=== PATIENT | female | born 1980 | race Caucasian/White ===

== ENCOUNTER 2019-11-02 08:55 | Day surgery (SDC) | payer OTHER ==
[~2019-11-02] VITALS: Ht 157.5 cm; Wt 99.8 kg
[~2019-11-02 08:55] MED LIST: FLUOXETINE HCL10 MG PO; GLUCOPHAGE500 MG PO; IBUPROFEN400 MG PO; LOMOTIL TABLET1 EACH PO; ZOFRAN ODT4 MG PO
--- NOTE | 2019-11-03 11:43 | OR ---
[facility] [address] [place] [id number] Signed DATE OF OPERATION: 11/02/2019 SURGEON: Kaveh Tena MD Patient of Dr. Tena. PREOPERATIVE DIAGNOSIS: Abnormal uterine bleeding. POSTOPERATIVE DIAGNOSES: 1. Abnormal uterine bleeding. 2. Endometrial polyp. PROCEDURE: Hysteroscopy with polypectomy and D and C. ANESTHESIA: MAC. ESTIMATED BLOOD LOSS: 20 mL. SPECIMENS: Endometrial sample and endometrial polyp. DRAINS: None. PACKING: None. FINDINGS: Normal size and shape of cervix, and normal shape and size of endometrial cavity with large amount of normal-appearing fluffy endometrial tissue. There was a long thin endometrial polyp starting at the upper body and extending to the lower uterine segment and endocervix. There was also small dark necrotic-looking nodule approximately 5 mm diameter right in the midline fundus, possibly degenerating fibroid or polyp or even blood clot. COMPLICATIONS: Electronically Signed By: KAVEH TENA MD 11/03/19 1143 PATIENT NAME: SHARON BRASWELL OPERATIVE REPORT DATE OF : [birth year] REPORT #: [id number] PHYSICIAN: KAVEH TENA MD PCP: BENJAMIN ALEGRIA REPORT IS CONFIDENTIAL AND NOT TO BE RELEASED WITHOUT AUTHORIZATION [address] [address] Signed None. DESCRIPTION OF PROCEDURE: The patient was brought to the operating room, placed in supine position, and prepped and draped in usual sterile fashion. The patient received MAC and then a small speculum placed in the vagina. The anterior lip of the cervix was grasped with a long Allis clamp. The cervix was dilated to #6 Latvian dilator and then the hysteroscope placed in the outer cervix and entered the uterine cavity under direct visualization using sterile saline as the distending medium through the cervix and into the uterine cavity. The above findings were noted. The MyoSure Lite was then placed through the hysteroscope and the long thin polyp removed along its entire length. There was a large amount of fluffy tissue making visualization more difficult, so this was removed in the lower portion of the uterus in 360 degree fashion, opening up, and better visualization of the upper fundus where the small nodule was then easily identified. This was also removed using the MyoSure. At this point, no other masses or lesions were seen. The cavity appeared open, so the procedure was terminated. The pressure in the cavity was 80 mmHg. Fluid deficit was inaccurate because almost half the fluid ended up going around the collection bag and ending up on the floor, but estimate was around 300-400 mL. All instruments were removed from the uterus and cervix. The cervix was observed and noted to have good hemostasis. The patient tolerated the procedure well, went to recovery room in good condition. The sponge and instrument count correct at the end of the procedure. The uterine specimen was sent to Pathology for identification. MD SONIA Pickens/ISRRAEL /[id number] Copies: ~ Electronically Signed By: KAVEH TENA MD 11/03/19 1143 PATIENT NAME: SHARON BRASWELL OPERATIVE REPORT DATE OF : [birth year] REPORT #: [id number] PHYSICIAN: KAVEH TENA MD PCP: BENJAMIN ALEGRIA REPORT IS CONFIDENTIAL AND NOT TO BE RELEASED WITHOUT AUTHORIZATION
--- NOTE | 2019-11-09 16:07 | PATH ---
[facility] [address], [place] [address] Signed SPECIMEN(S): A ENDOMETRIAL CURETTINGS AND POLYP SPECIMEN SOURCE: A. ENDOMETRIAL CURETTINGS AND POLYP CLINICAL HISTORY: Abnormal uterine bleeding. 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 - Fragments of endometrial polyp, see Microscopic description. COMMENT: As part of [facility]' Quality Improvement Program, this case was reviewed by another member of our pathology staff. The results were discussed with Dr. Tena on 11/09/2019. NAL:emb:C1NR MICROSCOPIC EXAMINATION: Fragments consistent with an endometrial polyp are present and the adenocarcinoma is favored to be arising within the polyp. 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 Immunohistochemical stains (with appropriately staining controls) are performed. The endometrioid adenocarcinoma shows nuclear positivity for ER and a wild-type (non-mutated) pattern for p53, confirming the diagnosis. Histologic sections of all submitted blocks are examined by light microscopy. These findings, together with the gross examination, support the pathologic diagnosis. GROSS DESCRIPTION: The specimen is received in a formalin filled specimen container labeled "EG". An aggregate of pale pink-cardenas soft tissue fragments is 3.0 x 2.0 x 1.0 cm and entirely submitted in cassettes A1 and A2. GW (under the direct supervision of a pathologist) The Gross Description was prepared using a voice recognition system. The report was reviewed for accuracy; however, sound-alike word errors, addition and/or deletions may occur. If there is any question about this report, please contact Client Services. PATIENT NAME: SHARON BRASWELL PATHOLOGY DATE OF : 82 REPORT #: [id number] PHYSICIAN: [facility] PCP: BENJAMIN ALEGRIA REPORT IS CONFIDENTIAL AND NOT TO BE RELEASED WITHOUT AUTHORIZATION [facility] [address] [address] Signed ADDITIONAL NOTES: Immunohistochemical and/or in situ hybridization studies were performed on this case with the appropriate positive controls that react as expected. This test was developed and its performance characteristics determined by [facility]. It has not been cleared or approved by the U.S. Food and Drug Administration. The FDA has determined that such clearance or approval is not necessary. This test is used for clinical purposes. It should not be regarded as investigational or for research. [facility] is certified under the Clinical Laboratory Improvement Amendments of 1988 (CLIA) as qualified to perform high complexity clinical laboratory testing. PERFORMING LABORATORY: The technical component was performed by [facility], [address] [place] [id number] (Care Analyst: Luh Hector MD; CLIA# [id number]). [facility] [address] [address] (Care Analyst: Walter Mcgarry MD; CLIA# [id number]). Diagnostician: Cecelia Salgado MD Pathologist Electronically Signed 11/09/2019 Copies: ~ PATIENT NAME: SHARON BRASWELL PATHOLOGY DATE OF : [birth year] REPORT #: [id number] PHYSICIAN: [facility] PCP: BENJAMIN ALEGRIA REPORT IS CONFIDENTIAL AND NOT TO BE RELEASED WITHOUT AUTHORIZATION
== END 2019-11-02 17:25 | disposition home or self-care (01) ==
LOC: OPS 08:55 → DS 08:55 → OPS 10:15 → DS 10:15 → OPS 17:25
PROVIDERS: General Practice
PROC: 0UB98ZZ Excision of Uterus, Via Natural or Artificial Opening Endoscopic (ICD-10-PCS; principal; 2019-11-02 10:15)
DX: C54.1 Malignant neoplasm of endometrium (principal); N84.0 Polyp of corpus uteri; F32.9 Major depressive disorder, single episode, unspecified; E03.9 Hypothyroidism, unspecified; J45.20 Mild intermittent asthma, uncomplicated; G47.30 Sleep apnea, unspecified; E66.9 Obesity, unspecified; Z79.899 Other long term (current) drug therapy; Z79.84 Long term (current) use of oral hypoglycemic drugs; Z99.89 Dependence on other enabling machines and devices; Z68.41 Body mass index [BMI] 40.0-44.9, adult
CPT/HCPCS: 00952; J0330; J0461; J1100; J1885; J2250; J2405; J2704; J2765; J3010; J7121

== ENCOUNTER 2021-06-02 06:50 | Day surgery (SDC) | payer OTHER ==
[~2021-06-02] VITALS: Ht 157.5 cm; Wt 98.6 kg
--- NOTE | 2021-06-02 10:57 | NUR ---
06/02/21 1057 Sheets,Yajaira 1052 PT ARRIVED TO PACU ON 10L VIA MASK, RESP EVEN AND UNLABORED WITH ORAL AIRWAY IN PLACE. VSS.
--- NOTE | 2021-06-02 11:59 | NUR ---
PT IS BACK TO FROM PACU. SHE IS REPORTING FEELING HOT, COLD AIR BLOWING FORM FLAQUITA GAVIOTAGGER. CALL LIGHT WITHIN REACH. SHE IS REQUESTING A SNACK, APPLE SAUCE AND CRACKERS. WATER ON BEDSIDE TABLE. NO ADDITIONAL NEEDS AT THIS TIME. DISCHARGE CRITERIA IS DISCUSSED WITH PATIENT.
[2021-06-02] MEDS ORDERED: HYDROCODON-ACE1 EA11 PO (12:13)
[2021-06-02] MEDS ORDERED: CIPRO500 MG PO (12:13)
[2021-06-02] MEDS ORDERED: PYRIDIUM200 MG PO (12:13)
--- NOTE | 2021-06-02 12:46 | NUR ---
KRISTIAN 1235: PT IS ASSISTED UP OOB TO THE BATHROOM. UPON ENTERING THE BATHROOM SHE REPORTS THAT SHE FEELS LIKE SHE IS GOING TO THROW UP, SHE IS GIVEN AN EMESIS BAG AND SHE THROWS UP APPROX. 150ML. SHE IS ALSO ABLE TO VOID QS. SHE IS HELPED BACK TO HER ROOM AND INTO BED.
--- NOTE | 2021-06-02 13:32 | NUR ---
vitals taken, no other needs at this time. call light with in reach
--- NOTE | 2021-06-02 13:37 | NUR ---
PT HAS NO C/O'S AT THIS TIME. SHE IS RESTING. CALL LIGHT WITHIN REACH.
--- NOTE | 2021-06-02 14:04 | NUR ---
registry nurse assisted pt. to use the bathroom. pt. was able to urinated after sitting for a few minutes, pt stated she felt a little light headed, she asked for and was given a cold wash cloth for her neck and forehead. pt. then walked back to her room and layed back in her bed. no other needs at this time.
--- NOTE | 2021-06-02 14:22 | NUR ---
vitals taken. pt is asking when she will get to go home, pt would like some crackers. no other needs at this time
--- NOTE | 2021-06-02 14:26 | NUR ---
pt. is getting dressed to be discharged
--- NOTE | 2021-06-02 14:39 | NUR ---
PT IS GIVEN VERBAL DC INSTRUCTIONS WITH MOM IN THE ROOM. PT VERBALIZES UNDERSTANDING. NO QUESTIONS THIS TIME. SHE IS TAKEN TO VEHICLE VIA WC BY [employer].
--- NOTE | 2021-06-06 15:09 | OR ---
[facility] [address] [place], [place] [address] Signed DATE OF OPERATION: 06/02/2021 SURGEON: Andrew Pickett MD PREOPERATIVE DIAGNOSES: 1. A 13 mm left renal calculus, present within the left renal pelvis. 2. Bilateral complex renal cysts. POSTOPERATIVE DIAGNOSES: 1. A 13 mm left renal calculus, present within the left renal pelvis. 2. Bilateral complex renal cysts. NAMES OF PROCEDURES: 1. Diagnostic cystoscopy with left retrograde pyelogram. 2. Left flexible nephroureteroscopy with laser lithotripsy and basket extraction of stone fragments. 3. Insertion of a 6 x 24 cm double-J ureteral stent into the left ureter. ANESTHESIA: General. ESTIMATED BLOOD LOSS: Minimal. COMPLICATIONS: None. SPECIMENS: Fragments of left renal calculus, sent to the lab for stone analysis. DRAINS: A 6 x 24 cm double-J ureteral stent inserted into the left ureter. INDICATION FOR PROCEDURE: Ms. Orr is a very pleasant 41-year-old female with no previous history of nephrolithiasis, who recently presented to me for evaluation of bilateral renal cysts. She had presented to a local emergency department with flank pain and underwent a CT scan, which revealed complex cysts with layers of calcium within the cyst on both sides. Also instantly noted at that time was an 11 mm left renal calculus, poised to descend into the ureter. Of note, the patient was not notified of these findings at the time of Electronically Signed By: ANDREW PICKETT MD 06/06/21 1509 PATIENT NAME: SHARON ORR OPERATIVE REPORT DATE OF : 82 REPORT #: [id number] PHYSICIAN: ANDREW PICKETT MD PCP: NO PRIMARY CARE PHYSICIAN REPORT IS CONFIDENTIAL AND NOT TO BE RELEASED WITHOUT AUTHORIZATION [facility] [address] [place], [place] [address] scan. When she came to see me, she was mostly asymptomatic and denied ever experiencing any flank pain and also denied any history of kidney stones. I recommended a KUB to assess any potential growth in the stone and the KUB did confirm the presence of a 13 mm left renal pelvis calculus. After discussion of the risks and benefits of the procedure, the patient elected to undergo ureteroscopic extraction of her large asymptomatic left renal calculus. OPERATIVE FINDINGS: 1. On cystoscopy, there was no evidence of any suspicious masses, lesions, or stones. Bilateral ureteral orifices are in their normal anatomic location and effluxing clear urine. 2. Left retrograde pyelogram was performed which revealed a normal caliber ureter with no evidence of any filling defects throughout the entire length of the ureter. The left kidney appears normal with no evidence of any calyceal blunting or filling defects. There is a large stone within the left renal pelvis that is consistent with the known 13 mm stone. 3. The stone was fragmented using a 270 micron fiber. The stone was fragmented within the left renal pelvis and fragmented quite easily. 100% of stone burden was successfully extracted from the left renal pelvis. 4. At the end of the procedure, a 6 x 24 cm double-J ureteral stent was inserted into the left kidney and ureter under direct visualization without difficulty. DESCRIPTION OF PROCEDURE: After informed consent was obtained, the patient taken back to the operating room. She was transferred [facility] to the operating room table, where general anesthesia was induced. She was placed in the dorsal lithotomy position and her genitalia were prepped and draped in a standard sterile fashion. Using a 30-degree lens on a 22.5-Macedonian introducer, rigid cystoscope was inserted through the urethra and into her bladder under direct visualization. Panendoscopic views of the bladder were then obtained. Please see above findings. Attention was turned to the left ureteral orifice. A cone-tipped catheter was then used to perform a left retrograde pyelogram. Please see above findings. I then inserted a 0.035 Sensor wire through the left ureteral orifice and into the left ureter. Placement of the wire was confirmed on fluoroscopy. Over the wire, I passed a 09/27 ureteral access sheath into the left ureter. The sheath passed easily under fluoroscopic guidance. The sheath made it up to the left ureteropelvic junction without difficulty. I repeated a left retrograde pyelogram to confirm placement of the sheath. I removed the inner cannula and then advanced the ureteroscope through the sheath and into the left renal pelvis. I immediately visualized the stone in the mid pole of the left kidney. The stone was fragmented using a 270 micron fiber and a holmium laser at 10 and 1 settings. The stone fragmented easily without difficulty. A Zero tip basket was then used to extract the stone fragments, which was performed without any difficulty. 100% of the stone was Electronically Signed By: ANDREW PICKETT MD 06/06/21 1509 PATIENT NAME: SHARON ORR OPERATIVE REPORT DATE OF : 82 REPORT #: [id number] PHYSICIAN: ANDREW PICKETT MD PCP: NO PRIMARY CARE PHYSICIAN REPORT IS CONFIDENTIAL AND NOT TO BE RELEASED WITHOUT AUTHORIZATION [address] [address] Signed successfully extracted today. Once the stone was completely extracted, I removed the ureteroscope and took a quick look into the proximal left ureter and did not appreciate any other additional calculi. Through the sheath, I passed a 0.035 Sensor wire into the left renal pelvis and confirmed placement of the wire via fluoroscopy. The sheath was then removed fully intact, leaving the wire in place. Over the wire, I passed a 6 x 24 cm double-J ureteral stent into the left collecting system under direct visualization. The stent passed easily and a proximal coil was noted within the left renal pelvis. The patient's bladder was then drained and the stone fragments were placed in a specimen cup to be sent to the lab for stone analysis. The cystoscope was then removed. The procedure was terminated. The patient tolerated the procedure well with no complication. She will now be transferred to the postanesthesia care unit in stable condition. DISPOSITION: I discussed the details of today's procedure with the patient's [id number] and answered all of her questions. The patient will be sent home today with [place] 7.5/325 one tablet p.o. q.6 hours p.r.n. pain, dispense #30, along with Cipro 500 mg p.o. b.i.d. for a total of 7 days. She will be scheduled to return to clinic this , the 05 of June, to undergo a cystoscopy with left ureteral stent extraction. She will also be scheduled to return to clinic in approximately six weeks to discuss the results of her stone analysis. MD YESENIA Corrales/ISRRAEL /[id number] Copies: ~ Electronically Signed By: ANDREW PICKETT MD 06/06/21 1509 PATIENT NAME: SHARON ORR OPERATIVE REPORT DATE OF : 82 REPORT #: [id number] PHYSICIAN: ANDREW PICKETT MD PCP: NO PRIMARY CARE PHYSICIAN REPORT IS CONFIDENTIAL AND NOT TO BE RELEASED WITHOUT AUTHORIZATION
== END 2021-06-02 14:40 | disposition home or self-care (01) ==
LOC: DS 06:50 → OPS 06:50
PROVIDERS: ATTEND Urology
PROC: 0TC48ZZ Extirpation of Matter from Left Kidney Pelvis, Via Natural or Artificial Opening Endoscopic (ICD-10-PCS; principal; 2021-06-02 08:30)
PROC: 0T778DZ Dilation of Left Ureter with Intraluminal Device, Via Natural or Artificial Opening Endoscopic (ICD-10-PCS; 2021-06-02 08:30)
DX: N20.0 Calculus of kidney (principal); N28.1 Cyst of kidney, acquired; N30.91 Cystitis, unspecified with hematuria; N39.41 Urge incontinence; I10 Essential (primary) hypertension; E11.9 Type 2 diabetes mellitus without complications; J45.20 Mild intermittent asthma, uncomplicated; G47.33 Obstructive sleep apnea (adult) (pediatric); F32.9 Major depressive disorder, single episode, unspecified; F41.0 Panic disorder [episodic paroxysmal anxiety]; G89.29 Other chronic pain; Z90.710 Acquired absence of both cervix and uterus; Z85.42 Personal history of malignant neoplasm of other parts of uterus; Z85.828 Personal history of other malignant neoplasm of skin
CPT/HCPCS: 00918; 74420; C1769; C2617; J0690; J2250; J2405; J3010; J7121; Q9967

== ENCOUNTER 2024-06-13 07:36 | Day surgery (SDC) | payer OTHER ==
[~2024-06-13] VITALS: Ht 157.5 cm; Wt 89.8 kg
[~2024-06-13 07:36] MED LIST changes: +CIPRO500 MG PO; +ESTRACE42.5 GM VAGINAL; +HYDROCODON-ACE1 EA11 PO; +IBLOOD GLUCOSE TEST STRIP 1 EA TEST VI PRN; +LACTATED RINGER'S 1,000 ML IV SCH; +LIDOCAINE HCL 1% 5 ML SDV INJ ONE; +LIPITOR20 MG PO; +LISINOPRIL20 MG PO; +METFORMIN HCL500 MG PO; +MIDAZOLAM HCL 5 MG/5 ML VIAL IV PRN; +OZEMPIC0.25 MG/02 SQ; +PYRIDIUM200 MG PO; +fentaNYL citrate 100 MCG/2 ML VIAL IV PRN
[2024-06-13 07:55] VITALS: BP 138/77
[2024-06-13] MEDS ORDERED: fentaNYL citrate 100 MCG/2 ML VIAL ONE (09:13)
[2024-06-13] MEDS ORDERED: MIDAZOLAM HCL 5 MG/5 ML VIAL ONE (09:13)
[2024-06-13] MEDS ORDERED: MIDAZOLAM HCL 2 MG/2 ML VIAL ONE (10:00)
--- NOTE | 2024-06-13 10:30 | NUR ---
06/13/24 1030 Sheets,Yajaira 1022 PT ARRIVES TO PACU ON 3L VIA NC, PT WAKES EASILY AND REPORTS 2-3/10 CRAMPING PAIN PT ENCOURAGED TO PASS GAS AND EASILY FALLS BACK TO SLEEP. RESP EVEN AND UNLABORED.
[2024-06-13] MEDS ORDERED: ondansetron HCL 4 MG/2 ML VIAL ONE (11:41)
[2024-06-13] MEDS ORDERED: ondansetron HCL 4 MG/2 ML VIAL IV ONE (11:45)
[2024-06-13 11:51] VITALS: BP 120/66
[2024-06-13 12:35] VITALS: BP 125/84
--- NOTE | 2024-06-13 13:54 | NUR ---
LE 1150 PATIENT BACK TO DAY SURGERY ROOM 6. PATIENT VITAL SIGNS COMPLETED. PATIENT HAS COLD WASH CLOTH ON HEAD. PATIENT STATES HER NAUSEA HAS IMPROVED. LIGHTS DOWN. PATIENT RESTING. BREATHING EQUAL AND UNLABORED. OXYGEN SATURATIONS ABOVE 90% ROOM AIR. NO DRAINAGE AT SURGICAL SITE. WATER GIVEN. CALL LIGHT WITHIN REACH. NO FUTHER NEEDS. NO QUESTIONS. LE 1235 PATIENT MOTHER IN LAW AT BEDSIDE. PATIENT ALERT AND ORIENTED. BREAHTING EQUAL AND UNLABORED. OXYGEN SATURATIONS 90% ON ROOM AIR. PATIENT STATES HER NAUSEA IS MUCH BETTER. PATIENT DRESSED SELF. IV D/C'D WNL. PATIENT DISCHARGE INSTRUCTIONS GIVEN. NO QUESTIONS AT THIS TIME. PATIENT WHEELED OUT OF FACILITY. NO FUTHER NEEDS.
--- NOTE | 2024-06-14 06:30 | OR ---
[facility] [address] [place], [place] [address] Signed DATE OF OPERATION: 06/13/2024 SURGEON: Quincy Locke MD PREOPERATIVE DIAGNOSES: 1. Family history of celiac disease on maternal side. 2. Rectal pain and pressure. 3. Hemorrhoids. 4. Rectal bleeding. 5. Decreased sphincter tone and absent anal wink reflex with some fecal incontinence. 6. Father with colonic polyps in his 50s and 60s. 7. Positive celiac panel. POSTOPERATIVE DIAGNOSES: 1. Minimal distal gastritis. 2. Tiny hiatal hernia. 3. Minimal internal hemorrhoids. PROCEDURES: 1. Esophagogastroduodenoscopy with CLOtest and biopsies of the duodenum, pyloric bulb, and antrum. 2. Colonoscopy with random cold biopsies. INDICATIONS: Isela is a 44-year-old female, asked to see me for both upper and lower endoscopy. She has been working with her primary care provider. She has some concerns about autoimmune issues. She has celiac disease on the mother side of the family. She thinks it caused her mother's liver failure and and also evidence that her maternal grandmother had celiac disease. Her only positive test so far has been her celiac panel. She seemed to be improved with her symptoms with gluten free diet. She went from 5 or 6 bowel movement today down to about 3. She said her liver function test also improved when she was on gluten free diet. She said the terrible pain and bloating also improved. She talks about rectal pain and pressure. She spoke of her hysterectomy for endometrial cancer that did not require chemo or radiation therapy a few years ago. She thinks her sphincter tone has been decreased since that time and feels there is no anal wink reflex. She talks about some fecal incontinence. She see some rectal bleeding from time to time, which she associates with hemorrhoids. She told me her father had colon polyps around age 50-60. She has not suffered any damage to her back or spine. In the office, I gave her a pamphlet on colonoscopy. We had reviewed the nature of the test. There is risk including, but not limited to gas bloating, crampy abdominal pain, Electronically Signed By: QUINCY LOCKE MD 06/14/24 0630 PATIENT NAME: ISELA BRASWELL OPERATIVE REPORT DATE OF : 82 REPORT #: [id number] PHYSICIAN: QUINCY LOCKE MD PCP: REJI CHRISTIANSEN MD REPORT IS CONFIDENTIAL AND NOT TO BE RELEASED WITHOUT AUTHORIZATION [facility] [address] [place], [place] [address] Signed bleeding, perforation requiring surgery, and missed diagnosis. We also reviewed the written instructions for a bowel prep line by line. She also understands the need for IV conscious sedation with Versed and fentanyl. She understands an adult person asked to take her home afterwards. She had expressed understanding, wished to proceed. DESCRIPTION OF PROCEDURE: Isela was taken into our endoscopy suite and placed in the supine semi-recumbent position. The posterior oropharynx was anesthetized with lidocaine spray. A bite block was utilized for the case. She was given a total of 12 mg of Versed and 200 mcg of fentanyl to cover both upper and lower endoscopy. She has an extreme amount of anxiety. She really would have been much better served with monitored anesthesia care with propofol infusion. She coughed frequently throughout the upper endoscopy and was either out or awake looking at us. She had quite a bit of pain passing the scope through her colon as well. Nevertheless, she did make a few both procedures. Her duodenum was unremarkable. We took a biopsy of the duodenum because the history of celiac sprue panel being positive. She told me she has been back on her gluten diet for about a month. She had a tiny bit inflammation in the pyloric bulb and distal stomach. We took biopsies of the pyloric bulb as well as antrum for pathologic review. In addition, biopsy come out of the antrum for CLOtest. There were no ulcerations. The incisura, body, and fundus of the stomach were unremarkable. Upon retroflexion of scope, it looks like she might have just a very tiny sliding hiatal hernia. We withdrew the scope up through the area of the GE junction, which was compliant without stricture. Her Z-line measured out 32 cm from her incisors. There was no disruption to the Z-line. There was no Matthew mucosa. No distal esophagitis. The middle and upper esophagus were unremarkable. Her vocal cords and arytenoids were completely unremarkable. After this, the gas was suctioned out and the gastroscope removed. Overall, Isela tolerated the upper endoscopy fairly well. Isela was then rotated into the left lateral decubitus position. She was wide awake immediately upon withdrawing the gastroscope. She was given some additional IV sedation with Versed and fentanyl. To our exam, she had does have a positive wink reflex of her anus. She had moderate tone, which is common after Versed and fentanyl. There were no masses. Her anal sphincter muscles were actually pushing 3 cm in length. The adult colonoscope was introduced and advanced under direct visualization of the camera. It took more Versed and fentanyl. We had to pause frequently and use a slight bit of abdominal compression in order to get the camera into the cecum itself. Again, she would be much better served with propofol infusion. Her prep was quite excellent. We could easily see the appendiceal orifice and ileocecal valve. The scope was then slowly withdrawn. We took random biopsies throughout the entire colon or rectum. We saw no pathology throughout her entire colon or rectum. Upon retroflexion of scope, she has just some tiny internal hemorrhoid columns. After this, the gas was suctioned out. The colonoscope removed. Overall, Isela tolerated the colonoscopy. Electronically Signed By: QUINCY LOCKE MD 06/14/24 0630 PATIENT NAME: ISELA BRASWELL OPERATIVE REPORT DATE OF : 82 REPORT #: [id number] PHYSICIAN: QUINCY LOCKE MD PCP: REJI CHRISTIANSEN MD REPORT IS CONFIDENTIAL AND NOT TO BE RELEASED WITHOUT AUTHORIZATION [address] [address] Signed RECOMMENDATIONS: I will see Isela back in my office in 7 to 14 days to review her results. If she continues to have issues, she will need advance testing. In the future, she will be much better served with monitored anesthesia care, propofol infusion for both upper and lower endoscopies. In addition, she is probably going to be on a five year plan because of her father's history of colonic polyps. Quincy Locke MD ALB/MODL /[id number] cc: MD Quincy Nielsen MD Patient Chart Copies: QUINCY LOCKE MD ~ Electronically Signed By: QUINCY LOCKE MD 06/14/24 0630 PATIENT NAME: FRENCHISELA C OPERATIVE REPORT DATE OF : 82 REPORT #: [id number] PHYSICIAN: QUINCY LOCKE MD PCP: REJI CHRISTIANSEN MD REPORT IS CONFIDENTIAL AND NOT TO BE RELEASED WITHOUT AUTHORIZATION
--- NOTE | 2024-06-15 12:16 | PATH ---
[facility] [address] [facility] [place], [place] [address] Signed SPECIMEN(S): A DUODENAL BIOPSY SPECIMEN(S): B STOMACH BIOPSY SPECIMEN(S): C ANTRUM BIOPSY SPECIMEN(S): D ASCENDING BIOPSY SPECIMEN(S): E TRANSVERSE BIOPSY SPECIMEN(S): F DESCENDING BIOPSY SPECIMEN(S): G SIGMOID BIOPSY SPECIMEN(S): H RECTUM BIOPSY SPECIMEN SOURCE: A. DUODENAL BIOPSY B. STOMACH BIOPSY C. ANTRUM BIOPSY D. ASCENDING BIOPSY E. TRANSVERSE BIOPSY F. DESCENDING BIOPSY G. SIGMOID BIOPSY H. RECTUM BIOPSY CLINICAL HISTORY: Rectal pain, history of celiac FINAL PATHOLOGIC DIAGNOSIS: A. Duodenum, biopsy: - Unremarkable duodenal mucosa, negative for active inflammation or significant villous blunting. B. 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 C. Antrum, biopsy: - Mild chronic antral gastritis, negative for active inflammation. - No H. pylori bacteria are detected by HE stain. D. Ascending colon, biopsy: - Unremarkable colonic mucosa, negative for colitis, granulomas or dysplasia. E. Transverse colon, biopsy: - Unremarkable colonic mucosa, negative for colitis, granulomas or dysplasia. F. Ascending colon, biopsy: - Unremarkable colonic mucosa, negative for colitis, granulomas or dysplasia. G. Sigmoid colon, biopsy: - Unremarkable colonic mucosa, negative for colitis, granulomas or dysplasia. H. Rectum, biopsy: PATIENT NAME: SHARON BRASWELL PATHOLOGY DATE OF : 82 REPORT #: [id number] PHYSICIAN: JUSTO PATHOLOGY PCP: REJI CHRISTIANSEN MD REPORT IS CONFIDENTIAL AND NOT TO BE RELEASED WITHOUT AUTHORIZATION [facility] [address] [place], [place] [address] Signed - Hyperplastic colonic mucosa, negative for colitis, granulomas or dysplasia. AMB MICROSCOPIC EXAMINATION: Histologic sections of all submitted blocks are examined by light microscopy. These findings, together with the gross examination, support the pathologic diagnosis. GROSS DESCRIPTION: A. The specimen, labeled and designated "Kirby, duodenal biopsy," is received in formalin and consists of one cardenas soft tissue fragment, 0.4 cm. Entirely submitted in (A1). B. The specimen, labeled and designated "Kirby, stomach biopsy," is received in formalin and consists of one cardenas soft tissue fragment, 0.3 cm. Entirely submitted in (B1). C. The specimen, labeled and designated "Kirby, antrum biopsy," is received in formalin and consists of one cardenas soft tissue fragment, 0.3 cm. Entirely submitted in (C1). D. The specimen, labeled and designated "Kirby, ascending biopsy," is received in formalin and consists of one cardenas soft tissue fragment, 0.2 cm. Entirely submitted in (D1). E. The specimen, labeled and designated "Kirby, transverse biopsy," is received in formalin and consists of one cardenas soft tissue fragment, 0.6 cm. Entirely submitted in (E1). F. The specimen, labeled and designated "Kirby, descending biopsy," is received in formalin and consists of one cardenas soft tissue fragment, 0.2 cm. Entirely submitted in (F1). G. The specimen, labeled and designated "Kirby, sigmoid biopsy," is received in formalin and consists of one cardenas soft tissue fragment, 0.3 cm. Entirely submitted in (G1). H. The specimen, labeled and designated "Kirby, rectum biopsy," is received in formalin and consists of one cardenas soft tissue fragment, 0.2 cm. Entirely submitted in (H1). VB (under the direct supervision of a pathologist) The Gross Description was prepared using a voice recognition system. The report was reviewed for accuracy; however, sound-alike word errors, addition and/or deletions may occur. If there is any question about this report, please contact Client Services. ADDITIONAL NOTES: Immunohistochemical and/or in situ hybridization studies if performed in this PATIENT NAME: SHARON BRASWELL PATHOLOGY DATE OF : [birth year] REPORT #: [id number] PHYSICIAN: JUSTO ARREOLA PCP: REJI CHRISTIANSEN MD REPORT IS CONFIDENTIAL AND NOT TO BE RELEASED WITHOUT AUTHORIZATION [facility] [address] [place] [id number] Signed case included appropriate positive controls that reacted as expected. This test was developed and its performance characteristics determined by [facility]. It has not been cleared or approved by the U.S. Food and Drug Administration. The FDA has determined that such clearance or approval is not necessary. This test is used for clinical purposes. It should not be regarded as investigational or for research. [facility] is certified under the Clinical Laboratory Improvement Amendments of 1988 (CLIA) as qualified to perform high complexity clinical laboratory testing. PERFORMING LABORATORY: Technical component was performed by [facility], [address] [place] [address] (CLIA# [id number]). Professional interpretation was performed by [facility] [address] [facility] [id number] Diagnostician: Luh Hector MD Pathologist Electronically Signed 06/15/2024 Copies: ~ PATIENT NAME: SHARON BRASWELL PATHOLOGY DATE OF : [birth year] REPORT #: [id number] PHYSICIAN: JUSTO PATHOLOGY PCP: REJI CHRISTIANSEN MD REPORT IS CONFIDENTIAL AND NOT TO BE RELEASED WITHOUT AUTHORIZATION
== END 2024-06-13 12:35 | disposition home or self-care (01) ==
LOC: DS 07:36
PROVIDERS: ATTEND Colon & Rectal Surgery
PROC: 0DB98ZX Excision of Duodenum, Via Natural or Artificial Opening Endoscopic, Diagnostic (ICD-10-PCS; principal; 2024-06-13 09:00)
PROC: 0DBE8ZX Excision of Large Intestine, Via Natural or Artificial Opening Endoscopic, Diagnostic (ICD-10-PCS; 2024-06-13 09:00)
DX: K64.8 Other hemorrhoids (principal); K29.50 Unspecified chronic gastritis without bleeding; K29.80 Duodenitis without bleeding; K44.9 Diaphragmatic hernia without obstruction or gangrene; Z83.719 Family history of colon polyps, unspecified; I10 Essential (primary) hypertension; E11.9 Type 2 diabetes mellitus without complications; E03.9 Hypothyroidism, unspecified; Z79.84 Long term (current) use of oral hypoglycemic drugs; Z79.899 Other long term (current) drug therapy; Z91.040 Latex allergy status
CPT/HCPCS: 36415; 87077; 99153; G0500; J2250; J2405; J3010; J7121

== ENCOUNTER 2025-05-09 03:13 | Emergency (ER) | payer BC ==
[~2025-05-09] VITALS: Ht 157.5 cm; Wt 94.0 kg
[~2025-05-09 03:13] MED LIST changes: -IBLOOD GLUCOSE TEST STRIP 1 EA TEST VI PRN; -LACTATED RINGER'S 1,000 ML IV SCH; -LIDOCAINE HCL 1% 5 ML SDV INJ ONE; -MIDAZOLAM HCL 5 MG/5 ML VIAL IV PRN; -fentaNYL citrate 100 MCG/2 ML VIAL IV PRN
[2025-05-09 04:17] LABS: ALBUMIN 3.6 g/dL (3.4-5.0); ALBUMIN/GLOBULIN RATIO 0.86 (1.1-2.4); ANION GAP 14.9 (7-21); BILIRUBIN, TOTAL 0.9 mg/dL (0.2-1.0); BUN/CREATININE RATIO 24.7 (6.0-28.6); CALCIUM 9.5 mg/dL (8.5-10.1); CREATININE, SERUM 0.85 mg/dL (0.55-1.02); POTASSIUM 3.9 mmol/L (3.5-5.1); PROTEIN, TOTAL 7.8 g/dL (6.4-8.2); TSH, 3RD GENERATION 4.429 uIU/mL (0.358-3.740)
[2025-05-09] MEDS ORDERED: CYCLOBENZAPRINE10 MG PO (04:44)
[2025-05-09] MEDS ORDERED: methylPREDNISolone 4 MG HOME.PACK PO ONE (04:45)
[2025-05-09] MEDS ORDERED: CYCLOBENZAPRINE HCL 10 MG TAB PO ONE (04:45)
[2025-05-09] MEDS ORDERED: SYNTHROID50 MCG PO (04:47)
[2025-05-09 05:14] VITALS: BP 118/81
--- NOTE | 2025-05-09 19:10 | EKG ---
[facility] [address] [facility] [place] [address] Signed Normal sinus rhythm Low voltage QRS Anterolateral infarct , age undetermined Abnormal ECG When compared with ECG of 27-MAY-2021 16:29, Vent. rate has increased BY 33 BPM Confirmed by Dereck Matthews DO ([id number]) on 05/09/2025 7:10:09 PM Electronically Signed By: DERECK MATTHEWS DO 05/09/251909 PATIENT NAME: SHARON BRASWELL Electrocardiogram DATE OF : 82 PHYSICIAN: DERECK MATTHEWS DO REPORT #: [id number] REPORT IS CONFIDENTIAL AND NOT TO BE RELEASED WITHOUT AUTHORIZATION
== END 2025-05-09 05:15 | disposition home or self-care (01) ==
LOC: ED 03:13
PROVIDERS: Family Medicine
DX: I88.9 Nonspecific lymphadenitis, unspecified (principal); E03.9 Hypothyroidism, unspecified; E11.9 Type 2 diabetes mellitus without complications; Z87.442 Personal history of urinary calculi; Z90.89 Acquired absence of other organs; Z91.040 Latex allergy status; Z79.899 Other long term (current) drug therapy
CPT/HCPCS: 36415; 70360; 71045; 80053; 84439; 84443; 84484; 85025; 87651; 93005; 93010; 99284-25